=== PATIENT | female | born 1950 | race Caucasian/White ===

== ENCOUNTER 2019-12-28 09:25 | Day surgery (SDC) | payer MEDICARE ==
[2019-12-27 13:52] LABS: CLARITY,URINE CLEAR (Clear); COLOR,URINE YELLOW (Yellow); GLUCOSE, URINE NEGATIVE (Neg); KETONES,URINE NEGATIVE (Neg); LEUKOCYTE ESTERASE ,URINE NEGATIVE (Neg); NITRITES, URINE NEGATIVE (Neg); OCCULT BLOOD,URINE TRACE-INTACT (Neg); PH,URINE 6.5 (4.8-8.0); PROTEIN,URINE NEGATIVE (Neg); UROBILINOGEN,URINE 0.2 E.U/dL (0.2-1.0)
[2019-12-27 13:57] LABS: UA COLLECTION TYPE CLN CATCH MIDSTREAM
[2019-12-27 13:57] LABS: BASOPHILS % (AUTO) 0.6 % (0-1); EOSINOPHILS # (AUTO) 0.1 X10'3 (0-0.9); LYMPHOCYTES # (AUTO) 2.1 X10'3 (1.1-4.8); LYMPHOCYTES % (AUTO) 29.8 % (21-51); MEAN CORPUSCULAR HEMOGLOBIN 27.7 PG (27.0-31.0); MEAN CORPUSCULAR HGB CONC 32.4 g/dL (33.0-36.5); MEAN CORPUSCULAR VOLUME 85.4 FL (78-98); MEAN PLATELET VOLUME 8.8 FL (7.4-10.4); MONOCYTES # (AUTO) 0.6 X10'3 (0-0.9); MONOCYTES % (AUTO) 8.9 % (2-12); NEUTROPHILS # (AUTO) 4.1 X10'3 (1.8-7.7); NEUTROPHILS % (AUTO) 58.7 % (42-75); PRE OP HEMATOCRIT 42.8 % (35.0-45.0); PRE OP HEMOGLOBIN 13.9 g/dL (12.0-16.0); PRE OP PLATELET COUNT 278 X10'3 (140-440); RED BLOOD COUNT 5.01 X10'6 (4.20-5.60); RED CELL DISTRIBUTION WIDTH 14.6 % (11.5-14.5)
[2019-12-27 14:01] LABS: RBC,URINE 0-2 /HPF (0-2); WBC,URINE 0-4 /HPF (0-4)
[2019-12-27 14:02] LABS: BACTERIA,URINE NONE SEEN /HPF (Neg); MUCUS STRANDS FEW /LPF (Neg); SQUAMOUS EPITHELIAL CELL,UR MODERATE /LPF (FEW)
[2019-12-27 14:08] LABS: ALBUMIN 3.6 G/DL (3.4-5.0); ALBUMIN/GLOBULIN RATIO 0.8 (1.1-1.5); ALKALINE PHOSPHATASE 92 IU/L (46-116); BLOOD UREA NITROGEN 14 MG/DL (7-18); BUN/CREATININE RATIO 18.2 (6.6-38.0); CALCIUM 10.5 MG/DL (8.5-10.1); CHLORIDE 103 MMOL/L (99-107); CREATININE 0.77 MG/DL (0.40-0.90); PRE OP ALT 67 U/L (30-65); PRE OP ANION GAP 5 (8-16); PRE OP AST 24 U/L (10-37); PRE OP BILIRUB, TOTAL 0.5 MG/DL (0.0-1.0); PRE OP GLUCOSE 100 MG/DL (70-104); PRE OP SODIUM 142 MMOL/L (135-145); TOTAL CARBON DIOXIDE 33.7 MMOL/L (24-32); TOTAL PROTEIN 8.3 G/DL (6.4-8.2); eGFR 75 ML/MIN
[~2019-12-28] VITALS: Ht 170.2 cm; Wt 111.0 kg
[2019-12-28] VITALS (8 sets, daily range): BP systolic 147–165; BP diastolic 66–87
[~2019-12-28 09:25] MED LIST: AFRIN; ESOM20CA PO; LACT1CAP65 PO; ceFOXitin sod/dextrose 2g/50ml 50 ML IV ONE; famotidine 10mg tablet PO ONE; ringers solution, lacted 1,000 ML IV SCH
[2019-12-28] MEDS ORDERED: morphine 4 MG/ML inj SYRINge IV PRN (10:10)
[2019-12-28] MEDS ORDERED: ringers solution, lacted 1,000 ML IV SCH (10:10)
[2019-12-28] MEDS ORDERED: labetalol 20mg/4ml (5mg/ml) syringe IV PRN (10:10)
[2019-12-28] MEDS ORDERED: fentaNYL/PF 50MCG/1 ML 2ML syringe IV PRN ×2 (10:10)
[2019-12-28] MEDS ORDERED: ondansetron/PF 4mg/2ml inj IV PRN (10:10)
[2019-12-28] MEDS ORDERED: hydrALAZINE 20mg/ml inj. IV PRN (10:10)
[2019-12-28] MEDS ORDERED: morphine 2 MG/ML inj. syringe IV PRN (10:10)
[2019-12-28] MEDS ORDERED: BUPIVAcaine/PF 2.5 mg/ml (0.25%) 30ml vial ONE (11:22)
[2019-12-28] MEDS ORDERED: neostigmine methylsulfate 1 MG/ML 10ml vial ONE (11:40)
[2019-12-28] MEDS ORDERED: glycopyrrolate 0.2mg/ml inj ONE (11:40)
[2019-12-28] MEDS ORDERED: dexamethasone sod phosphate 10mg/ml inj ONE (11:40)
[2019-12-28] MEDS ORDERED: sevoflurane 250ml liquid IH ONE (11:40)
[2019-12-28] MEDS ORDERED: fentaNYL/PF 50MCG/1 ML 2ML syringe ONE (11:45)
[2019-12-28] MEDS ORDERED: rocuronium 10mg/ml inj IV ONE (11:54)
[2019-12-28] MEDS ORDERED: midazolam 2 mg/2 ml injection ONE (12:05)
[2019-12-28] MEDS ORDERED: LIDOcaine 2% (20mg/ml) 5ml vial ONE (12:06)
[2019-12-28] MEDS ORDERED: propofol inj 20 ML IV ONE (12:06)
[2019-12-28] MEDS ORDERED: ondansetron/PF 4mg/2ml inj ONE (12:06)
[2019-12-28] MEDS ORDERED: hydrALAZINE 20mg/ml inj. IV ONE ×2 (12:23→12:29)
[2019-12-28] MEDS ORDERED: ketorolac trometh. 30mg/ml inj. ONE (12:26)
--- NOTE | 2019-12-28 13:58 | NUR ---
PATIENT AND FAMILY HAVE VERBALIZED UNDERSTANDING, OPPORTUNITY TO ASK QUESTIONS GIVEN AND PATIENT COMFORTABLE WITH DC. IV TAKEN OUT WITHOUT COMPLICATION. PATIENT HAS MET ALL DC CRITERIA FOR DC HOME. I HAVE REVIEWED D/C INSTRUCTIONS PATIENT TAKEN OUT VIA WHEELCHAIR WHERE PATIENT WAS TAKEN HOME WITH ALL BELONGINGS. FAMILY GAVE PATIENT TRANSPORT HOME. AMBULATED, VOIDED AND DRESSED SELF WITH MINOR ASSIST. Addendum: 12/28/19 at 1437 by Issa Garcia RN, RN Amended: Links added.
== END 2019-12-28 14:08 | disposition home or self-care (01) ==
LOC: PAS 09:25
PROVIDERS: ATTEND Surgery
DX: K80.10 Calculus of gallbladder with chronic cholecystitis without obstruction (principal); F41.9 Anxiety disorder, unspecified; E66.01 Morbid (severe) obesity due to excess calories; Z68.38 Body mass index [BMI] 38.0-38.9, adult; Z79.899 Other long term (current) drug therapy; Z90.710 Acquired absence of both cervix and uterus; Z98.890 Other specified postprocedural states; Z72.89 Other problems related to lifestyle; Z87.891 Personal history of nicotine dependence
CPT/HCPCS: 36415; 47562; 80053; 81001; 82948; 85025; 93005; 93306; J0360; J0694; J1100; J1885; J2001; J2250; J2405; J2704; J2710; J3010; J3490; J7120; A4215; A4618; A7000